=== PATIENT | male | born 1985 | race Two or more races ===

== ENCOUNTER 2017-06-26 20:24 | Emergency (ER) | payer MEDICAID ==
[~2017-06-26] VITALS: Ht 165.1 cm; Wt 72.6 kg
[2017-06-26 20:36] VITALS: BP 133/77
[2017-06-26] MEDS ORDERED: IBUPROFEN 600 MG TAB PO ONE (22:45)
[2017-06-26] MEDS ORDERED: LORazepam 0.5 MG TAB PO ONE (23:00)
== END 2017-06-26 23:26 | disposition home or self-care (01) ==
LOC: ER 20:34
DX: F31.9 Bipolar disorder, unspecified (principal); F41.9 Anxiety disorder, unspecified; F20.9 Schizophrenia, unspecified; N18.6 End stage renal disease; F17.210 Nicotine dependence, cigarettes, uncomplicated

== ENCOUNTER 2017-08-12 19:34 | Emergency (ER) | payer MEDICAID ==
[2017-08-12 19:40] VITALS: BP 150/84
[2017-08-12] MEDS ORDERED: SODIUM CHLORIDE 0.9% 2,000 ML IV ONE (22:34)
[2017-08-12 23:11] LABS: Urine RBC None Seen /hpf (0 - 3)
[2017-08-12 23:22] LABS: Basophils # (auto) 0.1 uL; Basophils % (auto) 0.9 % (0.0-2.0); Eosinophils # (auto) 0.4 uL; Hematocrit 48.6 % (41.0-53.0); Hemoglobin 16.4 g/dL (13.5-17.5); Mean Corpuscular Hgb Conc. 33.7 g/dL (32.0-36.0); Mean Corpuscular Volume 91.9 fL (80.0-100.0); Mean Platelet Volume 9.3 fL (6.9-10.8); Monocytes % (auto) 9.2 % (0.0-12.0); Neutrophils # (auto) 5.3 uL; Neutrophils % (auto) 48.9 % (37.0-80.0); Nucleated Red Blood Cells % 0.1 %; Platelet Count (auto) 269 10^3/uL (140-450); Urine Bilirubin Negative (Negative); Urine Blood Negative /uL (Negative); Urine Color Yellow (Yellow); Urine Glucose Normal (Normal); Urine Ketone TRACE (Negative); Urine Mucus FEW (None Seen); Urine Nitrite Negative (Negative); Urine Squamous Epithelial Cell FEW /hpf (<5); Urine Urobilinogen Normal (Negative); Urine pH 5.5 (5.0-8.0); White Blood Cell 10.8 10^3/uL (4.4-10.8)
[2017-08-12 23:33] LABS: Albumin 4.4 g/dL (3.4-5.0); Calcium 9.2 mg/dL (8.5-10.1); Potassium 3.6 mmol/L (3.5-5.1)
[2017-08-12 23:34] LABS: BUN/Creatinine Ratio 9.8
[2017-08-12 23:37] LABS: Bilirubin, Total 0.5 mg/dL (0.2-1.0); Total Protein 8.3 g/dL (6.4-8.2)
== END 2017-08-13 00:40 | disposition home or self-care (01) ==
LOC: ER 19:34
DX: E16.2 Hypoglycemia, unspecified (principal); E86.0 Dehydration; F17.210 Nicotine dependence, cigarettes, uncomplicated; N18.6 End stage renal disease; F12.10 Cannabis abuse, uncomplicated
CPT/HCPCS: 36415; 80053; 80307; 81001; 82962; 85025; 96360; 96361; 99285; J7030